=== PATIENT | female | born 1995 | race Caucasian/White ===

== ENCOUNTER 2016-03-20 23:39 | Emergency (ER) | payer SELFPAY ==
[2016-03-21] MEDS ORDERED: predniSONE 20 MG TAB As Ordered ONE (01:59)
[2016-03-21] MEDS ORDERED: ALBUTEROL SULFATE 2.5 MG/0.5 ML INH NEB SOLN As Ordered ONE (02:01)
[2016-03-21] MEDS ORDERED: ALBUTEROL 90 MCG/ACT 8GM HFA INHALER As Ordered ONE (02:33)
--- NOTE | 2016-03-21 02:39 | EDDOCDS ---
Nurse's Notes [facility] Name: nAgie Matta Age: 20 yrs Sex: Female : 1995 Arrival Date: 03/20/2016 Time: 23:39 Bed I5 / M5 Private MD: NO PRIMARY PHYSICIAN, . Diagnosis: Adverse effect of unspecified systemic antibiotic-BACTRIM Presentation: 03/20 23:53 Presenting complaint: Patient states: Patient started bactrim DS, currently shaking. b Reports starting taking medicine yesterday. Patient reports that shaking started twenty minutes after taking medication tonight. Onset: The symptoms/episode began/occurred today. This patient has not experienced a previous allergic reaction. Anaphylaxis evaluation, the patient reports or I have noted the following symptoms which indicate a significant risk of anaphylaxis: no signs or symptoms of anaphylaxis were noted. Adult Sepsis Screening: The patient does not have new or worsening altered mentation. Patient's respiratory rate is less than 22. Systolic blood pressure is greater than 100. Patient has a qSOFA score of 0- Negative Sepsis Screen. Suicide/Homicide risk assessment- the patient denies having any suicidal and/or homicidal ideations and does not present with any other emotional, behavioral or mental health complaints. Status: Patient is not a billing services manager or dependent. Transition of care: patient was not received from another setting of care. 23:53 Acuity: ROZINA Level 4 [facility] 23:53 Method Of Arrival: Walkin/Carried/Asstd [facility] Triage Assessment: 23:55 General: Appears in no apparent distress. Pain: Denies pain. Pt Declines HIV testing. [facility] Neurological: Level of Consciousness is awake, alert, obeys commands, Oriented to person, place, time, Speech is normal, Facial symmetry appears normal, Facial symmetry: tongue is midline. Respiratory: Airway is patent Respiratory effort is even, unlabored, Respiratory pattern is regular, symmetrical, Reports no respiratory complaints. Derm: Skin is pink, warm & dry. Musculoskeletal: Range of motion intact in all extremities. 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 Bactrim DS 800-160 mg Oral tab 1 tab 2 times per day - PMHx: Asthma; - PSHx: none; - Social history: Smoking status: Patient states was never smoker of tobacco. No barriers to communication noted, The patient speaks fluent Malawian, Speaks appropriately for age. - Family history: Not pertinent. - : The pt / caregiver states he / she is not on anticoagulants. Home medication list is obtained from the patient. - Exposure Risk Screening:: None identified. Screenin/29 02:02 Screening information is obtained from the patient. Fall risk: No risks identified. jmb Assistance ADL's: requires no assistance with activities of daily living. Abuse/DV Screen: The patient / caregiver reports he/she is: not in a situation that causes fear, pain or injury. Nutritional screening: No deficits noted. Advance Directives: Currently, there is no health care proxy. There is no active DNR order. There is no living will. There is no Power of Psychiatric Registered Nurse. home support is adequate. Assessment: 02:02 General: Appears in no apparent distress, Behavior is appropriate for age, cooperative. jmb Neurological: Level of Consciousness is awake, alert, obeys commands, Oriented to person, place, time, Speech is normal, Facial symmetry appears normal, Facial symmetry: tongue is midline. Cardiovascular: Capillary refill < 3 seconds Heart tones present Pulses are all present. Rhythm is regular. Respiratory: Airway is patent Respiratory effort is even, unlabored, Respiratory pattern is regular, symmetrical, Breath sounds are diminished bilaterally. GI: Abdomen is flat, non- distended Bowel sounds present X 4 quads. Abd is soft X 4 quads. Derm: Skin is pink, warm & dry. Musculoskeletal: Range of motion intact in all extremities. 02:35 General: Patient instructed on discharge instructions. Patient asked if there were any b questions regarding discharge, patient stated no. Patient signed discharge instructions. Patient discharged in stable condition.. Vital Signs: 03/20 23:40 BP 131 / 68; Pulse 95; Resp 18 S; Temp 96.3; Pulse Ox 99% on R/A; Weight 49.9 kg (R); dd6 Height 5 ft. 7 in. (170.18 cm) (R); 03/21 02:35 BP 128 / 70; Pulse 78; Resp 18; Temp 97.0(O); Pulse Ox 99% on R/A; Pain 0/10; jmb 03/20 23:40 Body Mass Index 17.23 (49.90 kg, 170.18 cm) dd6 Vitals: 03/20 23:40 Log In Time: March 20, 2016 at 23:38. dd6 ED Course: 23:40 Patient visited by Kevin Peña PCA. dd6 23:40 NO PRIMARY PHYSICIAN, . is Private Physician. dd6 23:40 Patient moved to Waiting dd6 23:42 Patient moved to Pre RCE dd6 23:54 Triage Initiated jmb 03/21 01:22 Patient moved to I5 / M5 km 01:35 Chirag Francis RPA-C is PHCP. ck7 01:35 Shaan Ballesteros DO is Attending Physician. ck7 01:35 Patient visited by Chirag Francis RPA-C. ck7 02:02 The patient / caregiver is instructed regarding the plan of care and ED course. jmb 02:02 No IV's were initiated during this patient's visit. No procedures done that require jmb assistance. 02:03 Patient visited by Joe Morton RN. b 02:06 [facility] Payment Agreement was scanned into [employer] and attached to record. [email or web address] Administered Medications: 02:00 Drug: predniSONE 40 mg [prednisone 20 mg tablet (2 tabs)] Route: PO; jmb 02:04 Drug: Albuterol 2.5 mg [albuterol sulfate 2.5 mg/0.5 mL solution for nebulization (0.5 rs5 mL)] Route: Nebulizer; 02:33 Drug: Ventolin 2 puffs [Ventolin HFA 90 mcg/actuation aerosol inhaler (2 puffs)] Route: jmb Inhalation; RT: 02:05 Initial Med Neb Given as ordered Patient was instructed and evaluated on procedure rs5 Patient tolerated procedure well without adverse effect. Respiratory: Respiratory effort is even, unlabored, Respiratory pattern is regular symmetrical, Reports tightness in her chest. Order Results: There are currently no results for this order. Outcome: 02:34 Discharge ordered by Provider. ck 02:35 Discharge Assessment: Patient awake, alert and oriented x 3. No cognitive and/or jmb functional deficits noted. Patient verbalized understanding of disposition instructions. Patient awake and alert. obeys commands, Oriented to person, place and time. Patient verbalized understanding of disposition instructions. Patient has no functional deficits. patient administered narcotics - no. The following High Risk Discharge criteria are identified: None. Discharged to home ambulatory, with significant other. Condition: stable Condition: improved. Discharge instructions given to patient, Instructed on discharge instructions, follow up and referral plans. Demonstrated understanding of instructions, Pt was receptive of discharge instructions/ teaching. No special radiology studies were completed. Property sent home with patient. 02:38 Patient left the ED. layla Signatures: Monica Paniagua, RN RN kmg1 Kevin Peña, FLIGHT MECHANIC FLIGHT MECHANIC dd6 Melo Strickland,RT RT rs5 Chirag Francis, RPA-C RPA-Cck7 Joe MortonRN RN Lydia Munguia, Reg Reg ks16 MTDD
--- NOTE | 2016-03-21 02:39 | EDDOCDS ---
Physician Documentation [facility] Name: Angie Matta Age: 20 yrs Sex: Female : 1995 Arrival Date: 03/20/2016 Time: 23:39 Bed I5 / M5 Private MD: NO PRIMARY PHYSICIAN, . Disposition: 03/21/16 02:34 Discharged to Home/Self Care. Impression: Adverse effect of unspecified systemic antibiotic - BACTRIM. - Condition is Stable. - Discharge Instructions: Drug Allergy. - Prescriptions for Prednisone 20 mg Oral Tablet - take 2 tablet by ORAL route once daily for 5 days; 10 tablet. Albuterol Sulfate 90 mcg/actuation Inhalation HFA Aerosol Inhaler - inhale 2 puff by INHALATION route every 4 hours As needed; 1 Inhaler. Macrobid 100 mg Oral Capsule - take 100 milligram by ORAL route every 12 hours for 10 days; 20 capsule. - Medication Reconciliation, Local Pharmacy Hours form. - Follow up: Private Physician; When: 2 - 3 days; Reason: Recheck today's complaints, Continuance of care. - Problem is new. - Symptoms have improved. - Notes: USE MEDICATION INSTRUTCED, FOLLOW UP WITH YOUR DOCTOR ON TUESDAY, RETURN TO THE ER IF THE SYMPTOMS WORSEN OR BECOME CONCERNING, STOP BACTRIM, START MACROBID Historical: - Allergies: No known drug Allergies; - Home Meds: 1. Bactrim DS 800-160 mg Oral tab 1 tab 2 times per day - PMHx: Asthma; - PSHx: none; - Social history: Smoking status: Patient states was never smoker of tobacco. No barriers to communication noted, The patient speaks fluent Divehi, Speaks appropriately for age. - Family history: Not pertinent. - : The pt / caregiver states he / she is not on anticoagulants. Home medication list is obtained from the patient. - Exposure Risk Screening:: None identified. 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 7 in. (170.18 cm) (R); 03/21 02:35 BP 128 / 70; Pulse 78; Resp 18; Temp 97.0(O); Pulse Ox 99% on R/A; Pain 0/10; jmb 03/20 23:40 Body Mass Index 17.23 (49.90 kg, 170.18 cm) dd6 MDM: 01:50 Albuterol 2.5 mg Nebulizer once ordered. ck7 01:50 Call Respiratory ordered. ck7 01:50 predniSONE 40 mg PO once; administer with food or milk ordered. ck7 01:54 Call Respiratory complete. jmb 02:06 Financial registration complete. ks16 02:06 [facility] Payment Agreement was scanned into [employer] and attached to record. ks16 02:31 Ventolin Inhaler 2 puffs Inhalation once ordered. ck7 Administered Medications: 02:00 Drug: predniSONE 40 mg [prednisone 20 mg tablet (2 tabs)] Route: PO; jmb 02:04 Drug: Albuterol 2.5 mg [albuterol sulfate 2.5 mg/0.5 mL solution for nebulization (0.5 rs5 mL)] Route: Nebulizer; 02:33 Drug: Ventolin 2 puffs [Ventolin HFA 90 mcg/actuation aerosol inhaler (2 puffs)] Route: jmb Inhalation; Signatures: Chirag Francis, RPA-C RPA-Cck7 Joe Morton RN RN Lydia Munguia, Reg Reg ks16 Melo Strickland RT rs5 The chart was reviewed and I authenticate all verbal orders and agree with the evaluation and treatment provided.Attachments: 02:06 [facility] Payment Agreement ks16 MTDD
--- NOTE | 2016-03-23 03:39 | EDDOCDS ---
Physician Documentation [facility] Name: Angie Matta Age: 20 yrs Sex: Female : 1995 Arrival Date: 03/20/2016 Time: 23:39 Bed I5 / M5 Private MD: NO PRIMARY PHYSICIAN, . Disposition: 03/21/16 02:34 Discharged to Home/Self Care. Impression: Adverse effect of unspecified systemic antibiotic - BACTRIM. - Condition is Stable. - Discharge Instructions: Drug Allergy. - Prescriptions for Prednisone 20 mg Oral Tablet - take 2 tablet by ORAL route once daily for 5 days; 10 tablet. Albuterol Sulfate 90 mcg/actuation Inhalation HFA Aerosol Inhaler - inhale 2 puff by INHALATION route every 4 hours As needed; 1 Inhaler. Macrobid 100 mg Oral Capsule - take 100 milligram by ORAL route every 12 hours for 10 days; 20 capsule. - Medication Reconciliation, Local Pharmacy Hours form. - Follow up: Private Physician; When: 2 - 3 days; Reason: Recheck today's complaints, Continuance of care. - Problem is new. - Symptoms have improved. - Notes: USE MEDICATION INSTRUTCED, FOLLOW UP WITH YOUR DOCTOR ON TUESDAY, RETURN TO THE ER IF THE SYMPTOMS WORSEN OR BECOME CONCERNING, STOP BACTRIM, START MACROBID Historical: - Allergies: No known drug Allergies; - Home Meds: 1. Bactrim DS 800-160 mg Oral tab 1 tab 2 times per day - PMHx: Asthma; - PSHx: none; - Social history: Smoking status: Patient states was never smoker of tobacco. No barriers to communication noted, The patient speaks fluent Belarusian, Speaks appropriately for age. - Family history: Not pertinent. - : The pt / caregiver states he / she is not on anticoagulants. Home medication list is obtained from the patient. - Exposure Risk Screening:: None identified. 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 7 in. (170.18 cm) (R); 03/21 02:35 BP 128 / 70; Pulse 78; Resp 18; Temp 97.0(O); Pulse Ox 99% on R/A; Pain 0/10; jmb 03/20 23:40 Body Mass Index 17.23 (49.90 kg, 170.18 cm) dd6 MDM: 01:50 Albuterol 2.5 mg Nebulizer once ordered. ck7 01:50 Call Respiratory ordered. ck7 01:50 predniSONE 40 mg PO once; administer with food or milk ordered. ck7 01:54 Call Respiratory complete. jmb 02:06 Financial registration complete. ks16 02:06 [facility] Payment Agreement was scanned into [employer] and attached to record. ks16 02:31 Ventolin Inhaler 2 puffs Inhalation once ordered. : T-Sheet-- Draft Copy was scanned into [employer] and attached to record. klr Administered Medications: 02:00 Drug: predniSONE 40 mg [prednisone 20 mg tablet (2 tabs)] Route: PO; jmb 02:04 Drug: Albuterol 2.5 mg [albuterol sulfate 2.5 mg/0.5 mL solution for nebulization (0.5 rs5 mL)] Route: Nebulizer; 02:33 Drug: Ventolin 2 puffs [Ventolin HFA 90 mcg/actuation aerosol inhaler (2 puffs)] Route: jmb Inhalation; Signatures: Chirag Francis, RPA-C RPA-Cck7 Joe MortonRN RN Lydia Munguia, Reg Reg ks16 Maryana Lopez Richard RT rs5 The chart was reviewed and I authenticate all verbal orders and agree with the evaluation and treatment provided.Attachments: 02:06 [facility] Payment Agreement T-Sheet-- Draft Copy klr Chart Complete MTDD
--- NOTE | 2016-03-23 03:39 | EDDOCDS ---
Nurse's Notes [facility] Name: Angie Matta Age: 20 yrs Sex: Female : 1995 Arrival Date: 03/20/2016 Time: 23:39 Bed I5 / M5 Private MD: NO PRIMARY PHYSICIAN, . Diagnosis: Adverse effect of unspecified systemic antibiotic-BACTRIM Presentation: 03/20 23:53 Presenting complaint: Patient states: Patient started bactrim DS, currently shaking. b Reports starting taking medicine yesterday. Patient reports that shaking started twenty minutes after taking medication tonight. Onset: The symptoms/episode began/occurred today. This patient has not experienced a previous allergic reaction. Anaphylaxis evaluation, the patient reports or I have noted the following symptoms which indicate a significant risk of anaphylaxis: no signs or symptoms of anaphylaxis were noted. Adult Sepsis Screening: The patient does not have new or worsening altered mentation. Patient's respiratory rate is less than 22. Systolic blood pressure is greater than 100. Patient has a qSOFA score of 0- Negative Sepsis Screen. Suicide/Homicide risk assessment- the patient denies having any suicidal and/or homicidal ideations and does not present with any other emotional, behavioral or mental health complaints. Status: Patient is not a service desk technician or dependent. Transition of care: patient was not received from another setting of care. 23:53 Acuity: ROZINA Level 4 [facility] 23:53 Method Of Arrival: Walkin/Carried/Asstd [facility] Triage Assessment: 23:55 General: Appears in no apparent distress. Pain: Denies pain. Pt Declines HIV testing. [facility] Neurological: Level of Consciousness is awake, alert, obeys commands, Oriented to person, place, time, Speech is normal, Facial symmetry appears normal, Facial symmetry: tongue is midline. Respiratory: Airway is patent Respiratory effort is even, unlabored, Respiratory pattern is regular, symmetrical, Reports no respiratory complaints. Derm: Skin is pink, warm & dry. Musculoskeletal: Range of motion intact in all extremities. 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 Bactrim DS 800-160 mg Oral tab 1 tab 2 times per day - PMHx: Asthma; - PSHx: none; - Social history: Smoking status: Patient states was never smoker of tobacco. No barriers to communication noted, The patient speaks fluent Sri Lankan, Speaks appropriately for age. - Family history: Not pertinent. - : The pt / caregiver states he / she is not on anticoagulants. Home medication list is obtained from the patient. - Exposure Risk Screening:: None identified. Screenin/29 02:02 Screening information is obtained from the patient. Fall risk: No risks identified. jmb Assistance ADL's: requires no assistance with activities of daily living. Abuse/DV Screen: The patient / caregiver reports he/she is: not in a situation that causes fear, pain or injury. Nutritional screening: No deficits noted. Advance Directives: Currently, there is no health care proxy. There is no active DNR order. There is no living will. There is no Power of [employer]. home support is adequate. Assessment: 02:02 General: Appears in no apparent distress, Behavior is appropriate for age, cooperative. jmb Neurological: Level of Consciousness is awake, alert, obeys commands, Oriented to person, place, time, Speech is normal, Facial symmetry appears normal, Facial symmetry: tongue is midline. Cardiovascular: Capillary refill < 3 seconds Heart tones present Pulses are all present. Rhythm is regular. Respiratory: Airway is patent Respiratory effort is even, unlabored, Respiratory pattern is regular, symmetrical, Breath sounds are diminished bilaterally. GI: Abdomen is flat, non- distended Bowel sounds present X 4 quads. Abd is soft X 4 quads. Derm: Skin is pink, warm & dry. Musculoskeletal: Range of motion intact in all extremities. 02:35 General: Patient instructed on discharge instructions. Patient asked if there were any b questions regarding discharge, patient stated no. Patient signed discharge instructions. Patient discharged in stable condition.. Vital Signs: 03/20 23:40 BP 131 / 68; Pulse 95; Resp 18 S; Temp 96.3; Pulse Ox 99% on R/A; Weight 49.9 kg (R); dd6 Height 5 ft. 7 in. (170.18 cm) (R); 03/21 02:35 BP 128 / 70; Pulse 78; Resp 18; Temp 97.0(O); Pulse Ox 99% on R/A; Pain 0/10; jmb 03/20 23:40 Body Mass Index 17.23 (49.90 kg, 170.18 cm) dd6 Vitals: 03/20 23:40 Log In Time: March 20, 2016 at 23:38. dd6 ED Course: 23:40 Patient visited by Kevin Peña PCA. dd6 23:40 NO PRIMARY PHYSICIAN, . is Private Physician. dd6 23:40 Patient moved to Waiting dd6 23:42 Patient moved to Pre RCE dd6 23:54 Triage Initiated jmb 03/21 01:22 Patient moved to I5 / M5 km 01:35 Chirag Francis RPA-C is PHCP. ck7 01:35 Shaan Ballesteros DO is Attending Physician. ck7 01:35 Patient visited by Chirag Francis RPA-C. ck7 02:02 The patient / caregiver is instructed regarding the plan of care and ED course. jmb 02:02 No IV's were initiated during this patient's visit. No procedures done that require jmb assistance. 02:03 Patient visited by Joe Morton RN. b 02:06 [facility] Payment Agreement was scanned into [employer] and attached to record. ks16 20:28 T-Sheet-- Draft Copy was scanned into [employer] and attached to record. klr Administered Medications: 02:00 Drug: predniSONE 40 mg [prednisone 20 mg tablet (2 tabs)] Route: PO; jmb 02:04 Drug: Albuterol 2.5 mg [albuterol sulfate 2.5 mg/0.5 mL solution for nebulization (0.5 rs5 mL)] Route: Nebulizer; 02:33 Drug: Ventolin 2 puffs [Ventolin HFA 90 mcg/actuation aerosol inhaler (2 puffs)] Route: jmb Inhalation; RT: 02:05 Initial Med Neb Given as ordered Patient was instructed and evaluated on procedure rs5 Patient tolerated procedure well without adverse effect. Respiratory: Respiratory effort is even, unlabored, Respiratory pattern is regular symmetrical, Reports tightness in her chest. Order Results: There are currently no results for this order. Outcome: 02:34 Discharge ordered by Provider. ck7 02:35 Discharge Assessment: Patient awake, alert and oriented x 3. No cognitive and/or jmb functional deficits noted. Patient verbalized understanding of disposition instructions. Patient awake and alert. obeys commands, Oriented to person, place and time. Patient verbalized understanding of disposition instructions. Patient has no functional deficits. patient administered narcotics - no. The following High Risk Discharge criteria are identified: None. Discharged to home ambulatory, with significant other. Condition: stable Condition: improved. Discharge instructions given to patient, Instructed on discharge instructions, follow up and referral plans. Demonstrated understanding of instructions, Pt was receptive of discharge instructions/ teaching. No special radiology studies were completed. Property sent home with patient. 02:38 Patient left the ED. layla Signatures: Monica Paniagua, RN RN kmg1 Kevin Peña, MORPHOLOGIST MORPHOLOGIST dd6 Melo Strickland,RT RT rs5 Chirag Francis, RPA-C RPA-Cck7 Joe Morton,RN RN Lydia Munguia, Reg Reg ks16 Jessica, Maryana nixon Chart Complete MTDD
--- NOTE | 2016-03-23 03:39 | EDDOCDS ---
Physician Documentation [facility] Name: Angie Matta Age: 20 yrs Sex: Female : 1995 Arrival Date: 03/20/2016 Time: 23:39 Bed I5 / M5 Private MD: NO PRIMARY PHYSICIAN, . Disposition: 03/21/16 02:34 Discharged to Home/Self Care. Impression: Adverse effect of unspecified systemic antibiotic - BACTRIM. - Condition is Stable. - Discharge Instructions: Drug Allergy. - Prescriptions for Prednisone 20 mg Oral Tablet - take 2 tablet by ORAL route once daily for 5 days; 10 tablet. Albuterol Sulfate 90 mcg/actuation Inhalation HFA Aerosol Inhaler - inhale 2 puff by INHALATION route every 4 hours As needed; 1 Inhaler. Macrobid 100 mg Oral Capsule - take 100 milligram by ORAL route every 12 hours for 10 days; 20 capsule. - Medication Reconciliation, Local Pharmacy Hours form. - Follow up: Private Physician; When: 2 - 3 days; Reason: Recheck today's complaints, Continuance of care. - Problem is new. - Symptoms have improved. - Notes: USE MEDICATION INSTRUTCED, FOLLOW UP WITH YOUR DOCTOR ON TUESDAY, RETURN TO THE ER IF THE SYMPTOMS WORSEN OR BECOME CONCERNING, STOP BACTRIM, START MACROBID Historical: - Allergies: No known drug Allergies; - Home Meds: 1. Bactrim DS 800-160 mg Oral tab 1 tab 2 times per day - PMHx: Asthma; - PSHx: none; - Social history: Smoking status: Patient states was never smoker of tobacco. No barriers to communication noted, The patient speaks fluent Divehi, Speaks appropriately for age. - Family history: Not pertinent. - : The pt / caregiver states he / she is not on anticoagulants. Home medication list is obtained from the patient. - Exposure Risk Screening:: None identified. 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 7 in. (170.18 cm) (R); 03/21 02:35 BP 128 / 70; Pulse 78; Resp 18; Temp 97.0(O); Pulse Ox 99% on R/A; Pain 0/10; jmb 03/20 23:40 Body Mass Index 17.23 (49.90 kg, 170.18 cm) dd6 MDM: 01:50 Albuterol 2.5 mg Nebulizer once ordered. ck7 01:50 Call Respiratory ordered. ck7 01:50 predniSONE 40 mg PO once; administer with food or milk ordered. ck7 01:54 Call Respiratory complete. jmb 02:06 Financial registration complete. ks16 02:06 [facility] Payment Agreement was scanned into [employer] and attached to record. ks16 02:31 Ventolin Inhaler 2 puffs Inhalation once ordered. : T-Sheet-- Draft Copy was scanned into [employer] and attached to record. klr Administered Medications: 02:00 Drug: predniSONE 40 mg [prednisone 20 mg tablet (2 tabs)] Route: PO; jmb 02:04 Drug: Albuterol 2.5 mg [albuterol sulfate 2.5 mg/0.5 mL solution for nebulization (0.5 rs5 mL)] Route: Nebulizer; 02:33 Drug: Ventolin 2 puffs [Ventolin HFA 90 mcg/actuation aerosol inhaler (2 puffs)] Route: jmb Inhalation; Signatures: Chirag Francis, RPA-C RPA-Cck7 Joe MortonRN RN Lydia Munguia, Reg Reg ks16 Maryana Lopez Richard RT rs5 The chart was reviewed and I authenticate all verbal orders and agree with the evaluation and treatment provided.Attachments: 02:06 [facility] Payment Agreement T-Sheet-- Draft Copy klr Chart Complete MTDD
== END 2016-03-21 02:38 | disposition home or self-care (01) ==
LOC: M ED 23:39
DX: T50.905A Adverse effect of unspecified drugs, medicaments and biological substances, initial encounter (principal); X58.XXXA Exposure to other specified factors, initial encounter; Y92.89 Other specified places as the place of occurrence of the external cause; Y93.89 Activity, other specified; Y99.8 Other external cause status; J45.909 Unspecified asthma, uncomplicated; Z88.1 Allergy status to other antibiotic agents

== ENCOUNTER 2016-06-12 13:45 | Emergency (ER) | payer BC, MEDICAID ==
[~2016-06-12] VITALS: Ht 170.2 cm; Wt 54.4 kg
[2016-06-12] MEDS ORDERED: PRENTAB55 PO (13:55)
[2016-06-12 14:43] LABS: BASO % 0.4 % (0.0-1.0); EOS # 0.2 K/mm3 (0.0-0.50); EOS % 2.4 % (0.0-3.0); LARGE UNSTAINED CELL # 0.2 K/mm3 (0.0-0.4); LARGE UNSTAINED CELL % 1.6 % (0.0-4.0); LYMPH # 1.1 K/mm3 (1.5-6.5); LYMPH % 10.8 % (24.0-44.0); MEAN CORPUSCULAR HEMOGLOBIN 30.5 pg (27.0-33.0); MEAN CORPUSCULAR HGB CONC 34.2 g/dl (32.0-36.5); MEAN CORPUSCULAR VOLUME 89.1 fl (80.0-96.0); MONO # 0.5 K/mm3 (0.0-0.8); MONO % 4.6 % (0.0-5.0); NEUTROPHILS % 80.3 % (36.0-66.0); PLATELET COUNT, AUTOMATED 217 k/mm3 (150-450); RED CELL DISTRIBUTION WIDTH 14.6 % (11.5-14.5)
--- NOTE | 2016-06-12 16:03 | REP ---
Obstetric ultrasonography, emergency room request first trimester with vaginal bleeding: There is a single intrauterine gestation in a breech presentation. There is movement and cardiac activity. heart rate is 169 beats per minute. The placenta is posterior and the inferior margin of the placenta extends into the lower uterine segment within to point centimeters of the internal cervical os. This location this could be a marginal previa. The amniotic fluid volume subjectively is normal. By today's measurements gestational age is 15 weeks 5 days with an SLOAN of 11/29/2016. weight is 140 grams. This is the 72nd percentile for 15 weeks 2 days. Impression: The Findings are compatible with a marginal placenta previa. There is no direct placenta previa. Signed by Joe Boland MD 06/12/2016 03:55 P
[2016-06-12 16:22] VITALS: BP 106/67
[2016-06-12] MEDS ORDERED: MACR100C3 PO (16:29)
[2016-06-12] MEDS ORDERED: NITROFURANTOIN (MACROBID) 100 MG CAP PO ONE (16:30)
--- NOTE | 2016-06-13 21:26 | ED PDOC ---
Post-Departure Follow-Up DR SPEARS faxed formal report of ob us for fu Robby Hernandez MD Jun 13, 2016 21:26
== END 2016-06-12 16:40 | disposition home or self-care (01) ==
LOC: M ED 14:30
DX: O23.42 Unspecified infection of urinary tract in pregnancy, second trimester (principal); Z3A.14 14 weeks gestation of pregnancy

== ENCOUNTER → 2016-07-09 | Outpatient (CLI) | payer BC ==
[~2016-07-09] MED LIST: MACR100C3 PO; PRENTAB55 PO
--- NOTE | 2016-07-12 08:44 | REP ---
Obstetric sonography: History: Supervision of for anatomy. Comparison sonography June 12, 2016 showed evidence of marginal placenta previa. Findings: Scanning through the gravid uterus demonstrates a viable single intrauterine gestation in a cephalic lie. motion is observed and heart rate is recorded at 133 beats per minute. A posterior placenta was seen. On initial review by my associate Dr. Boland, it was felt that the inferior tip of the placenta was not clearly seen. At his request, the patient is being recalled for additional images of the inferior tip of the placenta. The patient has been contacted and I am informed she will come for additional images this coming . Addendum report can be issued . Closed cervical length measured transabdominally is 3.9 cm. No extrauterine abnormality is observed. There has been appropriate interval growth. There was evidence of nuchal cord position. Bilateral small choroid plexus cysts are observed. No other anomaly is seen. The nose and lips are seen but adequate facial profile could not be achieved due to position. The following additional anatomic structures are identified and felt to be sonographically unremarkable: cranium, cavum, cerebellum and posterior fossa, lungs, four-chamber heart with left and right ventricular outflow tract views, diaphragm, left-sided stomach, abdominal wall cord insertion, three-vessel umbilical cord, kidneys and bladder, spine, upper and lower extremities. Biometry chart: BPD 4.7 cm 20 weeks 1 day Head circumference 16.7 cm 19 weeks 2 days Abdominal circumference 13.9 cm 19 weeks 2 days Femur length 3.3 cm 20 weeks 1 day Humeral length 3.0 cm 19 weeks 5 days Cerebellar diameter 2.1 cm 20 weeks 0 days HC/AC ratio normal 1.2. Cephalic index normal 0.8. Estimated weight 307 grams, 0 pounds 10 ounces, 69th percentile for 19 weeks 1 day. Impression: Viable single intrauterine gestation at 19 weeks 6 days by today's composite sonographic criteria. Expected gestational age estimate based on prior sonography is 19 weeks 4 days. SLOAN by prior sonography November 29, 2016. Posterior placenta. Inferior tip of the placenta less than optimally visualized. Repeat imaging with transabdominal and preferably transvaginal imaging suggested. Small bilateral choroid plexus cysts. Less than optimal visualization of the facial profile. Signed by Nader Klein MD 07/12/2016 01:06 P
== END ==
LOC: M RAD 13:44
PROVIDERS: ATTEND Specialist
DX: Z34.80 Encounter for supervision of other normal pregnancy, unspecified trimester (principal)

== ENCOUNTER 2018-05-01 21:03 | Inpatient (IN) | payer BC ==
[~2018-05-01] VITALS: Ht 170.2 cm; Wt 68.0 kg
[~2018-05-01 21:03] MED LIST changes: -MACR100C3 PO; +MACR100C43 PO
[2018-05-01 21:36] VITALS: BP 111/62
[2018-05-01] MEDS ORDERED: LACTATED RINGER'S 1000 ML IV STA (22:51)
[2018-05-01] MEDS ORDERED: LR 1,000 ML IV SCH (22:51)
--- NOTE | 2018-05-01 23:08 | HPEPDOC ---
Obstetrical History & Physical General Date of Admission May 01, 2018 at 22:52 Primary Care Physician: YOVANA PONCE CNM History of Present Illness Patient is a 22-year-old female who is a at 40.6 weeks gestation with an SLOAN of 04/24/18 based off of her 2nd trimester ultrasound at 18 weeks gestation. She initiated care in the second trimester at [facility] in [place], [place]. She had limited care. She presented to L&D with complaints of SROM at 2044 tonight. She reports clear fluid leaking. She reports active movement. She denies vaginal bleeding. Chief Complaint: Contractions, term, Active Labor Information Provided By: Patient Age: 22 : 4 Term: 3 Pre-term: 0 Abortions: 0 Livin Care Care: Limited Care Dating Final EDC: Apr 24, 2018 Final EDC by: 2nd trimester (US) LMP: Aug 08, 2017 EGA at Admission: 40.6 Antepartum Course Height (inches): 67 Pre- weight (lbs.): 145 Past Medical History Past Obstetrical History #1: Past Obstetrical History: Primgravida Gestation: 39 Type of Delivery: Spontaneous Vaginal Del. (November 2013) Sex of Infant: Male (weight: 7 lbs 14 oz) Complications: No Past Obstetrical History #2: Past Obstetrical History: Multigravida Gestation: 38 Type of Delivery: Spontaneous Vaginal Del. (November 2014) Sex of Infant: Male (7 lbs) Complications: No Past Obstetrical History #3: Past Obstetrical History: Multigravida Gestation: 38 Type of Delivery: Spontaneous Vaginal Del. (October 2016) Sex of Infant: Male (weight 7 lbs) Complications: No C[facility] T[facility] ROOM History: No pertinent history Past Medical History Medical History Asthma as a child Surgical History: Denies/None Family History Significant Family History: Noncontributory Social History Marital Status: Single Psychosocial History: No pertinent psych hx * Smoker: non-smoker Alcohol: Denies Drugs: denies Abuse Violence Screening Have you been hit/kicked/slapp: No Have you been sexually assault: No Allergies Coded Allergies: Sulfamethoxazole w/Trimethoprim (Verified Allergy, Unknown, 06/12/16) HEART RACING Medications Scheduled Multivitamins/ ( 19) 1 Tab Tab, 1 TAB PO DAILY Nitrofurantoin Monohydrate Mac (Macrobid) 100 Mg Cap, 100 MG PO BID Physical Examination Physical Examination GENERAL: Alert and oriented times three. BREAST: . ABDOMEN: Gravid and non-tender to touch. FETUS: Is vertex (VTX) by sterile vaginal examination (SVE), fetus is vertex (VTX) by Jovan and by sono st bedside. HEART RATE: Regular rate and rhythm. LUNGS: Clear to auscultation (CTA). EXTREMITIES: No edema. No clonus. Deep tendon reflexes (DTRs) + 2. Laboratory Data Urine Culture: No Growth Pertinent Laboratoy Data Blood Type: A+ RBC Antibody Screen: Negative HIV: Negative Hepatitis B: Negative Rapid Plasma Reagin: Nonreactive Rubella: Immune Varicella: Immune Chlamydia/Gonorrhea: Negative Group B Streptococcus: Negative Quad Screen Test: Negative Cystic Fibrosis: Negative Vaginal Examination Dilation: 4 cm Effacement: 100% Station: 0 (large amount of clear fluid leaking from vagina. ) Cervical Position: Anterior Presentation: Cephalic presentation Position: Vertex (occiput) Assessment Heart Rate (FHR): 120 Variability: Moderate Accelerations: Positive Decelerations: None Tocometer Contractions: Yes Frequency: irregular Assessment/Plan Assessment IUP at 40.6 weeks gestation Category I FHR tracing SROM Active labor GBS negative Plan Admit to L&D. Awaiting records from previous OB provider. OOB ad kiley. Diet: clear. Labs and intravenous (IV) per unit protocol. Lactated Ringers (LR): Bolus 800 mL, then at 125 mL/hr. Anesthesia consult per patient's request. Anticipate cervical change and . YOVANA PONCE CNM May 01, 2018 23:08
[2018-05-01 23:10] LABS: HEMATOCRIT 36.9 % (36.0-47.0); HEMOGLOBIN 12.4 g/dl (12.0-15.5); MEAN CORPUSCULAR HEMOGLOBIN 31.3 pg (27.0-33.0); MEAN CORPUSCULAR HGB CONC 33.6 g/dl (32.0-36.5); MEAN CORPUSCULAR VOLUME 93.2 fl (80.0-96.0); PLATELET COUNT, AUTOMATED 173 10^3/uL (150-450); RED BLOOD COUNT 3.96 10^6/uL (4.00-5.40); WHITE BLOOD COUNT 10.6 10^3/uL (4.0-10.0)
[2018-05-01] MEDS ORDERED: OXYTOCIN 30 UNITS IN 0.9% NaCl 500ML IV BAG (J2590) As Ordered ONE (23:57)
[2018-05-02] VITALS (7 sets, daily range): BP systolic 101–150; BP diastolic 58–78
[2018-05-02] MEDS ORDERED: OXYTOCIN DRIP 30 UNITS in APPROPRIATE DILUENT 1 EA IV SCH (00:32)
--- NOTE | 2018-05-02 00:39 | DNPDOC ---
[facility] Delivery Note Delivery Note DATE OF DELIVERY: 05/02/18 at 0014 PREDELIVERY DIAGNOSIS: 40-6/7 weeks' gestation and labor. POST DELIVERY DIAGNOSIS: Delivered. PROCEDURE: Spontaneous vaginal delivery DIRECTOR BUSINESS TRAVEL: Yovana Bhatt CNM, ANA ANESTHESIA: none. ESTIMATED BLOOD LOSS: 200 mL. FINDINGS: 8 pounds 9 ounces; 3890 grams; female infant, Score 9/9; limited care. DELIVERY SUMMARY: Patient is a 22-year-old female who is now a who presented to L&D in active labor and SROM. She progressed to fully dilated at 0002 and pushed to a living female in the KAMALA position with restitution to ROT at 0014. The anterior shoulder delivered with ease and the corpus immediately followed. The baby was placed [id number] active and crying with stimulation. The cord was clamped x2 after pulsation ceased and cut by myself. A 3-vessel cor d was noted. The placenta delivered spontaneously and intact at 0020. Uterine hemostasis was achieved via rapid infusion of IV Pitocin and fundal massage. The perineum and vagina was inspected and found to be intact. Mom plans to breastfeed her . Both mom and baby are in stable condition. YOVANA BHATT CNM May 02, 2018 00:39
[2018-05-02] MEDS ORDERED: ANUSOL HC CREAM 30GM TOP PRN (00:45)
[2018-05-02] MEDS ORDERED: DIBUCAINE 1% OINTMENT 30GM TOP PRN (00:45)
[2018-05-02] MEDS ORDERED: METHYLERGONOVINE MALEATE 0.2 MG TAB PO PRN (00:45)
[2018-05-02] MEDS ORDERED: MEASLES,MUMPS,RUBELLA VACCINE INJ (MMR-II) (90707) SC SCH (00:45)
[2018-05-02] MEDS ORDERED: ACETAMINOPHEN 500 MG TAB PO PRN (00:45)
[2018-05-02] MEDS ORDERED: DOCUSATE SODIUM 100 MG CAP PO PRN (00:45)
[2018-05-02] MEDS ORDERED: RHOGAM 300 MCG (1500 IU) INJ (J2790) IM SCH (00:45)
[2018-05-02] MEDS ORDERED: IBUPROFEN 800 MG TAB PO PRN (00:45)
[2018-05-02] MEDS: PRENATAL VITAMINS CHEWABLE TABLET PO SCH (08:27)
[2018-05-03 05:44] VITALS: BP 102/61
[2018-05-03] MEDS: PRENATAL VITAMINS CHEWABLE TABLET PO SCH (08:03)
[2018-05-03] MEDS ORDERED: IBUP-1114 PO (08:24)
[2018-05-03] MEDS ORDERED: MAPA500T2 PO (08:24)
[2018-05-03] MEDS ORDERED: COLA100C5 PO (08:24)
== END 2018-05-03 13:00 | disposition home or self-care (01) | DRG 560 ==
LOC: M LDO 21:03 → M LDI 22:52 → M OBS 05-02 02:45
PROVIDERS: ADMIT Advanced Practice Midwife; ATTEND Advanced Practice Midwife
PROC: 10E0XZZ Delivery of Products of Conception, External Approach (ICD-10-PCS; principal; 2018-05-02)
DX: O48.0 Post-term pregnancy (principal); Z3A.40 40 weeks gestation of pregnancy; Z37.0 Single live birth

== ENCOUNTER → 2018-07-19 | Outpatient (REF) | payer BC ==
[~2018-07-19] MED LIST changes: +COLA100C5 PO; +IBUP-1114 PO; +MAPA500T2 PO
== END ==
LOC: M LAB REF 17:11
PROVIDERS: ATTEND Advanced Practice Midwife
DX: R10.2 Pelvic and perineal pain (principal)

== ENCOUNTER → 2018-07-21 | Outpatient (CLI) | payer BC ==
--- NOTE | 2018-07-21 14:45 | REP ---
Clinical: Pelvic and perineal pain . Technique: Transabdominal pelvic ultrasound followed by transvaginal examination for better evaluation of the endometrium and adnexa with color Doppler evaluation of the ovaries. Findings: Bladder is unremarkable and measures 5.7 x 3.9 x 2.9 cm . Heterogeneous anteverted uterus measures 11.3 x 5.0 x 7.0 cm . The endometrial complex measures 16 mm thickness and small punctate calcifications are appreciated likely chronic and insignificant. No discrete uterine or endometrial abnormalities are appreciated. Bilateral ovaries are normal in appearance and vascularity without evidence for torsion. Right ovary measures 2.8 x 3.0 x 3.6 cm with two dominant follicles measuring 14 and 19 mm ; R I = 0.48. Left ovary measures 1.7 x 1.3 x 1.6 cm ; R I = 0.60 . No pelvic fluid or adnexal mass lesion. Impression: 1. Two dominant follicles in the right ovary. 2. Otherwise essentially normal examination. If symptoms persist consider reevaluation in 4-6 weeks to assess the right ovarian cysts. Electronically Signed by Thomas Castillo MD 07/21/2018 02:35 P
== END ==
LOC: M RAD 13:27
PROVIDERS: ATTEND Advanced Practice Midwife
DX: N83.01 Follicular cyst of right ovary (principal); R10.2 Pelvic and perineal pain; N94.12 Deep dyspareunia

== ENCOUNTER → 2019-01-24 | Outpatient (CLI) | payer BC ==
--- NOTE | 2019-01-24 08:48 | REP ---
Clinical: Anatomical evaluation. Comparison: None . Findings: Examination demonstrates a single live intrauterine in breech presentation. motion is identified by technologist. Placenta is noted anterior and grade I without evidence for placenta previa or abruption. Amniotic fluid volume is normal. Cervix measures the 4.1 cm in length and appears closed. No evidence for nuchal cord. Gestational age by LMP 18 weeks 2 days with SLOAN 06/25/2019 . Gestational age by current measurements 17 weeks 5 days with SLOAN 06/29/2019 . FHR equals 146 beats per minute. BPD 3.7 cm 17 weeks 2 days HC 14.3 cm 17 weeks 4 days AC 12.1 cm 17 weeks 5 days FL 2.6 cm 18 weeks 0 days HL 2.6 cm 18 weeks 2 days HC/AC ratio 1.19 Estimated weight 210 grams ( 28th percentile). Anatomical assessment demonstrates normal structures including cranium, choroid plexus, cavum, cerebellum/posterior fossa, facial features, lungs, four-chamber heart/ventricular outflow tracts, diaphragm, stomach, cord insertion/three-vessel cord, kidneys/bladder, spine, and extremities. Incidental echogenic focus within the right cardiac ventricle likely prominent moderator band. Impression: Single live intrauterine in breech presentation demonstrating appropriate interval growth. cardiac findings as above. Otherwise normal anatomical assessment. Electronically Signed by Thomas Castillo MD 01/24/2019 08:39 A
== END ==
LOC: M RAD 07:20
PROVIDERS: ATTEND Advanced Practice Midwife
DX: Z34.82 Encounter for supervision of other normal pregnancy, second trimester (principal); Z3A.17 17 weeks gestation of pregnancy